=== PATIENT | male | born 1940 | race Caucasian/White ===

== ENCOUNTER 2017-01-30 12:16 | Emergency (ER) | payer MEDICARE, BC ==
[~2017-01-30 12:16] MED LIST: ACET500CAP PO; ASAB PO; ATEN100 PO; BUM1 PO; CARDCD240 PO; CARDCD300 PO; CAT3 PO; CEFT5 PO; CO Q-10100 MG PO; COMBIVIR PO; DIOVAN HC2 PO; FLOMAX4 PO; KLOR-CON M2020 MEQ PO; MAGNESIUM OTC PO; MAGOX4 PO; MULTIVIT/MIN PO; NAC 600 PO; NIACIN PO; PAX20 PO; PAXIL40 MG PO; PEP20 PO; PRIN10 PO; PRIN20 PO; TRICOR145 PO; TRUVADA PO; VITA10 PO; VITAMIN B PO; VITAMIN D3 PO; VITC500 PO; VITE PO; XARELTO10 MG PO; XARELTO20 MG PO; ZERIT PO; ZOVI200CAP PO; [UNRECOGNIZED DRUG - OTHER] PO
[2017-01-30 13:04] LABS: BASOPHILS 1.5 %; BASOPHILS ABSOLUTE 0.07 10/3/uL (0.0-0.16); EOSINOPHILS 0.8 %; EOSINOPHILS ABSOLUTE 0.04 10/3/uL (0.0-0.53); HEMATOCRIT 40.9 % (40.0-51.0); HEMOGLOBIN 12.8 g/dL (13.6-17.8); LYMPHOCYTES 48.3 %; LYMPHOCYTES ABSOLUTE 2.33 10/3/uL (0.67-4.30); MEAN CORPUS HGB CONC 31.3 g/dL (32.0-36.0); MEAN CORPUSCULAR HEMOGLOB 28.8 pg (26.0-34.0); MEAN CORPUSCULAR VOLUME 91.9 fL (80-100); MEAN PLATELET VOLUME 9.6 fL (9.2-13.0); MONOCYTES 8.5 %; MONOCYTES ABSOLUTE 0.41 10/3/uL (0.21-1.20); NEUTROPHILS 40.9 %; NEUTROPHILS ABSOLUTE 1.97 10/3/uL (2.02-8.40); PLATELET COUNT 272 10/3/uL (150-400); RED CELL COUNT 4.45 10/6/uL (4.7-6.1)
[2017-01-30 13:06] LABS: ER CBC TAT 0 Hrs 11 Mins; MANUAL DIFF NO %; RBC DISTRIBUTION WIDTH 15.6 % (12.0-16.0); WHITE BLOOD CELLS 4.8 10/3/uL (4.5-10.5)
[2017-01-30 13:09] LABS: INTERNATIONAL NORMAL RATI 2.1 UNITS (-); PARTIAL THROMBO TIME 36.6 SEC (22.5-37.2)
[2017-01-30 13:10] LABS: PROTIME (NOT ORD) 23.2 SEC (12.0-14.5)
== END 2017-01-30 15:16 | disposition home or self-care (01) ==
LOC: ER 12:16
PROVIDERS: Emergency Medicine
DX: R04.0 Epistaxis (principal); I10 Essential (primary) hypertension; I48.91 Unspecified atrial fibrillation; Z21 Asymptomatic human immunodeficiency virus [HIV] infection status; Z79.82 Long term (current) use of aspirin; Z79.899 Other long term (current) drug therapy
CPT/HCPCS: 85025; 85610; 85730; 96374; 99284; A9270-GY